=== PATIENT | female | born 1985 ===

== ENCOUNTER 2016-11-15 20:31 | Emergency (ER) | payer MEDICAID ==
[2016-11-15 20:38] VITALS: RESP 16; O2SAT 100
--- NOTE | 2016-11-15 21:50 | ED PDOC ---
Syncope/Near Syncope/Dizziness Time Seen by Provider: 11/15/16 20:43 Chief Complaint (Nursing): Syncope Chief Complaint (Provider): near-syncope History Per: Patient History/Exam Limitations: no limitations Onset/Duration Of Symptoms: Hrs (9) Activity At Onset Of Symptoms: Standing Associated Symptoms Preceding Syncopal Episode: Lightheadedness Additional History Per: Patient Additional Complaint(s): 30 y/o female no past medical history presents for eval of near-syncopal episode this morning. Patient states she was standing outside waiting for the bus when she felt lightheaded, and then experienced blurry vision and felt like she was going to pass out. Patient states someone gave her a cookie and she felt better. Patient states she took an Ambien pill last night, and did not eat breakfast this morning, unknown if related to symptoms. Denies headache, dizziness, extremity numbness/weakness, chest pain, shortness of breath, palpitations, recent travel. Patient also notes right lower abdomen pain x 10 days, describes as "pulling". Denies fever, nausea/vomiting, chest pain, changes in bowel movements, dysuria, hematuria, vaginal bleeding/discharge. Past Medical History Reviewed: Historical Data, Nursing Documentation, Vital Signs Vital Signs: Last Vital Signs Temp 97.9 F 11/15/16 20:33 Pulse 68 11/15/16 20:33 Resp 16 11/15/16 20:33 BP 108/49 L 11/15/16 20:33 Pulse Ox 100 11/15/16 20:33 - Medical History PMH: Anemia, Anxiety, Depression Denies: Diabetes, Hepatitis, HIV, HTN, Seizures, Sexually Transmitted Disease - Surgical History Surgical History: No Surg Hx - Family History Family History: States: Diabetes - Home Medications Home Medications: Ambulatory Orders Medication Instructions Recorded ALPRAZolam [Xanax] 1 mg PO BID #10 tab 05/11/16 - Allergies Allergies/Adverse Reactions: Allergies Allergy/AdvReac Type Severity Reaction Status Date / Time No Known Allergies Allergy Verified 03/31/16 21:09 Review of Systems ROS Statement: Except As Marked, All Systems Reviewed And Found Negative Constitutional: Positive for: Weakness Gastrointestinal: Positive for: Abdominal Pain Physical Exam - Reviewed Nursing Documentation Reviewed: Yes Vital Signs Reviewed: Yes - Physical Exam Appears: Positive for: Well, Non-toxic, No Acute Distress Head Exam: Positive for: ATRAUMATIC, NORMAL INSPECTION, NORMOCEPHALIC Skin: Positive for: Normal Color Eye Exam: Positive for: Normal appearance, EOMI, PERRL ENT: Positive for: Normal ENT Inspection Cardiovascular/Chest: Positive for: Regular Rate, Rhythm Respiratory: Positive for: Normal Breath Sounds Gastrointestinal/Abdominal: Positive for: Bowel Sounds, Soft, Tenderness (right pelvic). Negative for: Distended, Rebound Back: Positive for: Normal Inspection Extremity: Positive for: Normal ROM Neurologic/Psych: Positive for: Alert, Oriented. Negative for: Motor/Sensory Deficits - Laboratory Results Result Diagrams: 11/15/16 22:19 11/15/16 22:19 Urine POC: Negative Urine dip results: Negative for: Leukocyte Esterase, Blood, Nitrate, Ketones - ECG ECG: Positive for: Viewed By Me (reviewed by ED attending) ECG Rhythm: Positive for: Sinus Bradycardia (57bpm) O2 Sat by Pulse Oximetry: 100 - Progress ED Course And Treament: labs, urine, chest xray, ekg, tv u/s, IV fluids, IV toradol EXAM: US Pelvis, Transvaginal CLINICAL HISTORY: 30 years old, female; Pain; Pelvic pain; Additional info: Right pelvic pain TECHNIQUE: Real-time transvaginal pelvic ultrasound (complete) with image documentation. Transvaginal imaging was used for better evaluation of the endometrium and adnexa. COMPARISON: No relevant prior studies available. FINDINGS: Uterus/cervix: Unremarkable in echogenicity and size measuring 8.9 x 4.0 x 5.3 cm. Normal endometrial stripe thickness. No myometrial mass. Right ovary: Unremarkable in echogenicity and size measuring 3.6 x 1.7 x 3.0 cm in. No mass. Normal blood flow. Left ovary: Unremarkable in echogenicity and size measuring 3.1 x 1.8 x 2.6 cm. No mass. Normal blood flow. Free fluid: No significant. free fluid. IMPRESSION: Normal pelvic ultrasound. EXAM: CT Abdomen and Pelvis With Intravenous Contrast CLINICAL HISTORY: 30 years old, female; Pain; Abdominal pain; Localized; Right lower quadrant (rlq ); Prior surgery; Surgery date: 6+ months; Surgery type: Abdominoplasty; Additional info: Right lower pain x 1wk TECHNIQUE: Axial computed tomography images of the abdomen and pelvis with intravenous contrast. This CT exam was performed using one or more of the following dose reduction techniques : automated exposure control, adjustment of the mA and/or kV according to patient size, and/ or use of iterative reconstruction technique. Coronal and sagittal reformatted images were created and reviewed. CONTRAST: 90 mL of [id number] administered intravenously. EXAM DATE/TIME: Exam ordered 11/15/2016 11:59 PM COMPARISON: US - TRANSVAGINAL 11/15/2016 10:35:05 PM FINDINGS: Lower thorax: Bilateral dependent atelectatic changes. Breast implants. ABDOMEN: Liver: Liver is prominent, 20.5 cm. Gallbladder and bile ducts: Gallbladder is collapsed. No calcified stones. No ductal dilation. Pancreas: Unremarkable. No mass. No ductal dilation. Spleen: Unremarkable. No splenomegaly. Adrenals: Unremarkable. No mass. Kidneys and ureters: Unremarkable. No solid mass. No hydronephrosis. Stomach and bowel: There is mildly increased air and fecal material in the large intestine, please correlate whether this may contribute to patient's symptoms. There is no evidence of pathologic bowel dilatation. No mucosal thickening. Appendix: The appendix is not identified with certainty although a normal appendix may be partially visualized series 2 image 62, coronal image 59 and adjacent. PELVIS: Bladder: Bladder is partly collapsed limiting evaluation. Reproductive: There was an ultrasound transvaginal performed earlier tonight, there is no other previous imaging available, if it is available please can Retroverted uterus, evidence of pelvic congestion noting serpiginous prominent vessels on the left. Hypoattenuating findings in the bilateral ovaries are likely functional in this young patient. As is true for all female patients of reproductive age, correlation with beta hCG and consideration of gynecologic causes of symptoms is recommended. ABDOMEN and PELVIS: Intraperitoneal space: Unremarkable. No free air. No significant fluid collection. Bones/joints: No acute fracture. No dislocation. Soft tissues: There are bilateral breast implants. There are what appear to be bilateral gluteal region implants, see for example series 2 image 75, please correlate with surgical history. No abdominal wall hernias containing bowel. Vasculature: See above. Lymph nodes: There are multiple although relatively small left para-aortic nodes , if there has been previous imaging comparisons suggested. IMPRESSION: No specific findings of appendicitis noting some limitations. Bilateral cystic findings in the ovaries which are likely functional in this young patient, As is true for all female patients of reproductive age, correlation with beta hCG and consideration of gynecologic causes of symptoms is recommended. Mildly increased fecal content, please correlate whether constipation might contribute to symptoms. There is hepatomegaly, laboratory correlation recommended. On re-eval, patient sleeping comfortably; tolerating PO without complaints of nausea/vomiting. Patient educated on all findings, discharged with instructions to follow up PMD 2-3 days. Advised to keep hydrated, eat well-balanced breakfast, eat high fiber diet. Return to ED for worsening/concerning symptoms. Disposition - Clinical Impression Clinical Impression: Abdominal pain, Constipation, Near syncope - Patient ED Disposition Is Patient to be Admitted: No Counseled Patient/Family Regarding: Studies Performed, Diagnosis, Need For Followup - Disposition Referrals: [facility] [Outside] Disposition: Routine/Home Disposition Time: 02:15 Condition: IMPROVED Instructions: Constipation (ED), High Fiber Diet (ED), Abdominal Pain (ED), Near Syncope (ED)
[2016-11-15] MEDS: Sodium Chloride 0.9% 1,000 ML IV STA (22:12)
[2016-11-15 22:23] LABS: BASO # 0.1 K/uL (0.0-0.2); BASO % 0.7 % (0.0-2.0); EOS # 0.3 K/uL (0.0-0.7); EOS % 3.9 % (0.0-4.0); HEMATOCRIT 34.5 % (34.0-47.0); LYMPH # 2.1 K/uL (1.0-4.3); LYMPH % 27.8 % (20.0-40.0); MEAN CELL VOLUME 94.8 fl (81.0-99.0); MEAN CORPUSCULAR HGB CONC 33.8 g/dL (33.0-37.0); MEAN PLATELET VOLUME 9.1 fl (7.2-11.7); MONO # 0.5 K/uL (0.0-0.8); MONO % 6.6 % (0.0-10.0); NEUT # 4.7 K/uL (1.8-7.0); RED CELL DISTRIBUTION WIDTH 12.9 % (11.5-14.5); WHITE BLOOD COUNT 7.7 K/uL (4.8-10.8)
[2016-11-15 22:40] LABS: ALB/GLOB RATIO 1.4 (1.0-2.1); ALKALINE PHOSPHATASE 42 U/L (38-126); ALT/SGPT 22 U/L (9-52); AST/SGOT 21 U/L (14-36); BILIRUBIN,TOTAL 0.2 mg/dl (0.2-1.3); BLOOD UREA NITROGEN 20 mg/dl (7-17); CALCIUM 8.8 mg/dL (8.4-10.2); CARBON DIOXIDE 26 mmol/L (22-30); CHLORIDE 105 mmol/L (98-107); GFR AFRICAN-AMERICAN > 60; GLUCOSE,RANDOM 83 mg/dL (65-105); POTASSIUM 4.1 MMOL/L (3.6-5.0); SODIUM 138 mmol/l (132-148); TOTAL PROTEIN 6.8 G/DL (6.3-8.2)
--- NOTE | 2016-11-15 23:11 | US ---
EXAM: US Pelvis, Transvaginal CLINICAL HISTORY: 30 years old, female; Pain; Pelvic pain; Additional info: Right pelvic pain TECHNIQUE: Real-time transvaginal pelvic ultrasound (complete) with image documentation. Transvaginal imaging was used for better evaluation of the endometrium and adnexa. COMPARISON: No relevant prior studies available. FINDINGS: Uterus/cervix: Unremarkable in echogenicity and size measuring 8.9 x 4.0 x 5.3 cm. Normal endometrial stripe thickness. No myometrial mass. Right ovary: Unremarkable in echogenicity and size measuring 3.6 x 1.7 x 3.0 cm in. No mass. Normal blood flow. Left ovary: Unremarkable in echogenicity and size measuring 3.1 x 1.8 x 2.6 cm. No mass. Normal blood flow. Free fluid: No significant. free fluid. IMPRESSION: Normal pelvic ultrasound.
[2016-11-16] MEDS ORDERED: Sodium Chloride 0.9% 50 ML IV ONE (00:24)
[2016-11-16] MEDS ORDERED: Iohexol 300 100 ML IJ ONE (00:24)
--- NOTE | 2016-11-16 01:32 | CT ---
EXAM: CT Abdomen and Pelvis With Intravenous Contrast CLINICAL HISTORY: 30 years old, female; Pain; Abdominal pain; Localized; Right lower quadrant (rlq); Prior surgery; Surgery date: 6+ months; Surgery type: Abdominoplasty; Additional info: Right lower pain x 1wk TECHNIQUE: Axial computed tomography images of the abdomen and pelvis with intravenous contrast. This CT exam was performed using one or more of the following dose reduction techniques: automated exposure control, adjustment of the mA and/or kV according to patient size, and/or use of iterative reconstruction technique. Coronal and sagittal reformatted images were created and reviewed. CONTRAST: 90 mL of [id number] administered intravenously. EXAM DATE/TIME: Exam ordered 11/15/2016 11:59 PM COMPARISON: US - TRANSVAGINAL 11/15/2016 10:35:05 PM FINDINGS: Lower thorax: Bilateral dependent atelectatic changes. Breast implants. ABDOMEN: Liver: Liver is prominent, 20.5 cm. Gallbladder and bile ducts: Gallbladder is collapsed. No calcified stones. No ductal dilation. Pancreas: Unremarkable. No mass. No ductal dilation. Spleen: Unremarkable. No splenomegaly. Adrenals: Unremarkable. No mass. Kidneys and ureters: Unremarkable. No solid mass. No hydronephrosis. Stomach and bowel: There is mildly increased air and fecal material in the large intestine, please correlate whether this may contribute to patient's symptoms. There is no evidence of pathologic bowel dilatation. No mucosal thickening. Appendix: The appendix is not identified with certainty although a normal appendix may be partially visualized series 2 image 62, coronal image 59 and adjacent. PELVIS: Bladder: Bladder is partly collapsed limiting evaluation. Reproductive: There was an ultrasound transvaginal performed earlier tonight, there is no other previous imaging available, if it is available please can Retroverted uterus, evidence of pelvic congestion noting serpiginous prominent vessels on the left. Hypoattenuating findings in the bilateral ovaries are likely functional in this young patient. As is true for all female patients of reproductive age, correlation with beta hCG and consideration of gynecologic causes of symptoms is recommended. ABDOMEN and PELVIS: Intraperitoneal space: Unremarkable. No free air. No significant fluid collection. Bones/joints: No acute fracture. No dislocation. Soft tissues: There are bilateral breast implants. There are what appear to be bilateral gluteal region implants, see for example series 2 image 75, please correlate with surgical history. No abdominal wall hernias containing bowel. Vasculature: See above. Lymph nodes: There are multiple although relatively small left para-aortic nodes, if there has been previous imaging comparisons suggested. IMPRESSION: No specific findings of appendicitis noting some limitations. Bilateral cystic findings in the ovaries which are likely functional in this young patient, As is true for all female patients of reproductive age, correlation with beta hCG and consideration of gynecologic causes of symptoms is recommended. Mildly increased fecal content, please correlate whether constipation might contribute to symptoms. There is hepatomegaly, laboratory correlation recommended. Other findings as above. Comparison on site recommended if there has been previous imaging.
[2016-11-16 02:40] VITALS: BP 111/72; PULSE 66; TEMP 98.1
--- NOTE | 2016-11-16 11:10 | RAD ---
HISTORY: near syncope COMPARISON: No prior. FINDINGS: LUNGS: Poor inspiration with low lung volumes, with suspected minor crowded bronchovascular markings and atelectasis. PLEURA: No significant pleural effusion identified, no pneumothorax apparent. CARDIOVASCULAR: Normal. OSSEOUS STRUCTURES: No significant abnormalities. VISUALIZED UPPER ABDOMEN: Normal. OTHER FINDINGS: None. IMPRESSION: Poor inspiration with low lung volumes, with suspected minor crowded bronchovascular markings and atelectasis.
--- NOTE | 2016-11-16 13:20 | CARD ---
APPROVED REPORT EKG Measurement Heart [id number] <Conclusion> Sinus bradycardia Otherwise normal ECG
== END 2016-11-16 02:23 | disposition home or self-care (01) ==
LOC: H.ER 20:31
DX: R55 Syncope and collapse (principal); K59.00 Constipation, unspecified
CPT/HCPCS: 71010; 74177; 76830; 80053; 81025; 82948; 85025; 93005; 96360; 99284; J1885; J7040; Q9967

== ENCOUNTER 2017-01-18 21:10 | Emergency (ER) | payer MEDICAID ==
[2017-01-18] MEDS ORDERED: Sodium Chloride 0.9% 1,000 ML IV STA (21:54)
[2017-01-18 22:50] LABS: BASO # 0.1 K/uL (0.0-0.2); BASO % 1.1 % (0.0-2.0); EOS # 0.4 K/uL (0.0-0.7); EOS % 4.5 % (0.0-4.0); HEMOGLOBIN 11.5 g/dL (12.0-16.0); LYMPH # 2.3 K/uL (1.0-4.3); LYMPH % 25.7 % (20.0-40.0); MEAN CELL VOLUME 93.4 fl (81.0-99.0); MEAN CORPUSCULAR HEMOGLOBIN 31.5 pg (27.0-31.0); MEAN CORPUSCULAR HGB CONC 33.7 g/dL (33.0-37.0); MEAN PLATELET VOLUME 9.1 fl (7.2-11.7); MONO # 0.7 K/uL (0.0-0.8); MONO % 7.8 % (0.0-10.0); NEUT # 5.5 K/uL (1.8-7.0); NEUT % 60.9 % (50.0-75.0); NRBC % 0.1 % (0.0-0.0); RBC 3.66 Mil/uL (3.80-5.20); RED CELL DISTRIBUTION WIDTH 12.9 % (11.5-14.5); WHITE BLOOD COUNT 8.9 K/uL (4.8-10.8)
--- NOTE | 2017-01-18 22:50 | ED PDOC ---
HPI: General Adult Time Seen by Provider: 01/18/17 21:27 Chief Complaint (Nursing): Dizziness/Lightheaded Chief Complaint (Provider): Weakness and Dizziness History Per: Patient History/Exam Limitations: no limitations Onset/Duration Of Symptoms: Days (x3 days) Have you had recent travel within the past 21 days to any of the following countries: [place], [place], [place] or [place]?: No Current Symptoms Are (Timing): Still Present Additional Complaint(s): Lisbeth Guerin, a 31 year old female, who has a past medical history of anxiety, anemia and hypotension and depression presents to the ED complaining of weakness and dizziness x3 days. The patient states that for the past 3 days she has been experiencing worsening poor energy levels, generalized weakness and dizziness. She reports that up until 3 weeks ago she had been on medication for anxiety (seroquel, xanax, prozac, wellbutrin) which were all discontinued due to lack of psychiatric care. The patient states that her psychiatrist has changed and she has not been able to go see a new provider. She states thats he has trouble sleeping and is constantly waking up early. She also reports she has been feeling weak throughout the day which has been associated with poor appetite. Denies HI/Si ideations, auditory and visual hallucinations. Past Medical History Reviewed: Historical Data, Nursing Documentation, Vital Signs Vital Signs: Last Vital Signs Temp 98.4 F 01/19/17 02:56 Pulse 88 01/19/17 02:56 Resp 18 01/19/17 02:56 BP 119/66 01/19/17 02:56 Pulse Ox 98 01/19/17 02:56 - Medical History PMH: Anemia, Anxiety, Depression Denies: Diabetes, Hepatitis, HIV, HTN, Seizures, Sexually Transmitted Disease - Surgical History Surgical History: No Surg Hx - Family History Family History: States: Unknown Family Hx, Diabetes - Social History Current smoker - smoking cessation education provided: No Alcohol: None Drugs: Denies - Home Medications Home Medications: Ambulatory Orders Medication Instructions Recorded ALPRAZolam [Xanax] 1 mg PO BID #10 tab 05/11/16 - Allergies Allergies/Adverse Reactions: Allergies Allergy/AdvReac Type Severity Reaction Status Date / Time No Known Allergies Allergy Verified 01/18/17 21:12 Review of Systems ROS Statement: Except As Marked, All Systems Reviewed And Found Negative Constitutional: Positive for: Weakness Gastrointestinal: Positive for: Other (poor appetite) Neurological: Positive for: Dizziness Psych: Positive for: Anxiety, Depression Physical Exam - Reviewed Nursing Documentation Reviewed: Yes Vital Signs Reviewed: Yes - Physical Exam Appears: Positive for: Non-toxic, No Acute Distress Head Exam: Positive for: ATRAUMATIC, NORMAL INSPECTION, NORMOCEPHALIC Skin: Positive for: Normal Color, Warm, Dry Eye Exam: Positive for: Normal appearance, EOMI, PERRL ENT: Positive for: Normal ENT Inspection Neck: Positive for: Normal, Painless ROM, Supple Cardiovascular/Chest: Positive for: Regular Rate, Rhythm, Chest Non Tender. Negative for: Murmur, Tachycardia Respiratory: Positive for: Normal Breath Sounds. Negative for: Rales, Rhonchi, Wheezing, Respiratory Distress Gastrointestinal/Abdominal: Positive for: Normal Exam, Bowel Sounds, Soft. Negative for: Tenderness, Mass, Guarding, Rebound Back: Positive for: Normal Inspection. Negative for: L CVA Tenderness, R CVA Tenderness Extremity: Positive for: Normal ROM. Negative for: Tenderness, Pedal Edema, Deformity, Swelling Neurologic/Psych: Positive for: Alert, Oriented, Mood/Affect (flat), Gait. Negative for: Facial Droop - Laboratory Results Result Diagrams: 01/18/17 22:40 01/18/17 22:40 - ECG O2 Sat by Pulse Oximetry: 100 (RA) Pulse Ox Interpretation: Normal Medical Decision Making Medical Decision Makin Initial Impression: 31 year old female presenting generalized in setting of known disruption of psychiatric regimen Initial Plan: * EKG * Alcohol Serum * CMP * Drug Screen * Crisis Evaluation * Upreg * Udip * CBC * NS IV 1000mls IV 1000mls/hr * Accucheck * Re-evaluation 2300 Labs reviewed: no clinically significant abnormalities. Patient was evaluated by crisis. Arranged for outpatient follow up at [facility]. Patient will be started on a low dose of Seroquel and is to follow up with the psychiatric service for further recommendations Dx: anxiety Condition: Stable 0035 Provider was awaiting UPreg prior to discharge; however, patient has tested positive on UPreg and can no longer be prescribed Seroquel. Patient confirms having mild abdominal pain. * BETA HCG QUANT * US TRANSVAGINAL 0252 US FINDINGS There is a twin intrauterine . Both mean sac diameters are approximately 0.7 cm. Yolk sacs are identified in both gestational sacs. No pole is identified at this time. Both maternal ovaries appear unremarkable. There is a small amount of free fluid in the pelvis. IMPRESSION: There is a diamniotic and dichorionic twin intrauterine . Viability cannot be assessed due to the early gestational age.Followup as clinically indicated. Explained results of US to patient fully. Patient needs to follow up with PCP for twin . Dx: anxiety and Scribe Attestation Documented by Kelly Gates acting as a scribe for Reji Fonseca MD. Provider Attestation All medical record entries made by the Scribe were at my direction and personally dictated by me. I have reviewed the chart and agree that the record accurately reflects my personal performance of the history, physical exam, medical decision making, and the department course for this patient. I have also personally directed, reviewed, and agree with the discharge instructions and disposition. Disposition - Clinical Impression Clinical Impression: Anxiety, Twin - Disposition Referrals: [facility] [Outside] [facility] [Outside] [facility] [Outside] Disposition: Routine/Home Disposition Time: 23:00 Condition: STABLE Instructions: (ED), Anxiety (ED), First Trimester (ED) Forms: [employer] (Romanian)
[2017-01-18 23:06] LABS: ALB/GLOB RATIO 1.5 (1.0-2.1); ALBUMIN 3.9 g/dL (3.5-5.0); ALT/SGPT 32 U/L (9-52); AST/SGOT 22 U/L (14-36); BLOOD UREA NITROGEN 15 mg/dl (7-17); CALCIUM 9.1 mg/dL (8.4-10.2); GFR AFRICAN-AMERICAN > 60; GFR NON-AFRICAN AMERICAN > 60
[2017-01-19 02:57] VITALS: BP 119/66; PULSE 88; RESP 18; TEMP 98.4
[2017-01-19 03:01] VITALS: O2SAT 100
--- NOTE | 2017-01-19 13:01 | US ---
PROCEDURE: ultrasound HISTORY: Abdominal pain, . COMPARISON: . Go 11/15/2016. TECHNIQUE: Standard protocol for this study/examination. FINDINGS: Twin intrauterine gestational sacs identified measuring 0.7 and 0.9 cm. Yolk sac identified in both gestational sacs. No pole is a identified. Calculation of gestational age based on sac measurement is not accurate, below the threshold for calculation of reliable gestational age. Gestational age cannot be ascertained in the absence of a reliable/ known LMP (unknown). Right ovary 2.2 x 3.8 cm. Normal Doppler arterial waveform documented. Left ovary 1.7 x 3.1 cm. Normal Doppler arterial waveform. Trace free fluid identified in the pelvis/cul de sac. IMPRESSION: Early twin intrauterine pregnancies. Gestational sacs and yolk sacs identified. No pole identified. Unremarkable maternal adnexa.
== END 2017-01-19 03:08 | disposition home or self-care (01) ==
LOC: H.ER 21:10
DX: R42 Dizziness and giddiness (principal); O30.001 Twin pregnancy, unspecified number of placenta and unspecified number of amniotic sacs, first trimester; F41.9 Anxiety disorder, unspecified; R53.1 Weakness; D64.9 Anemia, unspecified
CPT/HCPCS: 76817; 80053; 81025; 82948; 84702; 85025; 99285; G0480; J7040